=== PATIENT | female | born 1985 | race Hispanic/Latino ===

== ENCOUNTER → 2020-07-04 | Outpatient (CLI) | payer OTHER ==
--- NOTE | 2020-07-05 08:31 | Diagnostic Imaging Report ---
#[id number] - [id number] #BILATERAL DIGITAL DIAGNOSTIC MAMMOGRAM WITH CAD: 07/04/2020 Comparison is made to exam dated: 04/16/2016 mammogram - [facility]. The tissue of both breasts is predominantly fatty. Current study was also evaluated with a Computer Aided Detection (CAD) system. There are benign lymph nodes in both breasts. There is a mole marker on the right breast outlining the area of skin thickening. On tangential compression view, focal skin thickening is noted. No significant masses, calcifications, or other findings are seen in either breast. There has been no significant interval change. IMPRESSION: BENIGN There is no mammographic evidence of malignancy. A 2 year screening mammogram is recommended. The patient will be notified by letter of the results. Recommend dermatologic evaluation for focal skin finding. ALANNAH CALVERT M.D. mp/:07/04/2020 15:23:40 Cell Technician: Blessing ROSAS)(Gabriel), [facility] letter sent: Compared to Prior B9 Mammogram BI-RADS: 2 Benign
== END ==
LOC: MAMMO 14:24
PROVIDERS: ATTEND Obstetrics & Gynecology Obstetrics
DX: N63.13 Unspecified lump in the right breast, lower outer quadrant (principal); Z15.01 Genetic susceptibility to malignant neoplasm of breast
CPT/HCPCS: 77066